=== PATIENT | male | born 1985 | race Caucasian/White ===

== ENCOUNTER 2018-12-18 17:18 | Emergency (ER) | payer BC ==
[2018-12-18] MEDS ORDERED: Sulfamethoxazole/Trimethoprim 800-160 MG Tab PO ONE ×2 (17:19→20:13)
[2018-12-18] MEDS ORDERED: Ondansetron 4 MG Tab.DIS PO ONE (17:19)
[2018-12-18] MEDS ORDERED: Ondansetron 4 MG/2 ML SDV IV ONE (18:05)
[2018-12-18] MEDS ORDERED: HYDROmorphone 1 MG/ML Syringe IVPUSH ONE ×2 (18:11→19:41)
[2018-12-18] MEDS ORDERED: Sodium Chloride 0.9% 1,000 ML IV ONE (18:12)
[2018-12-18] MEDS ORDERED: fentaNYL 100 MCG/2 ML SDV IVPUSH ONE (18:24)
--- NOTE | 2018-12-18 18:26 | EDM.PDOC ---
<Navya West - Last Filed: 12/18/18 19:00> ED HPI GENERAL MEDICAL PROBLEM - General Chief Complaint: Gastrointestinal Problem Stated Complaint: PAIN KIDNEY AREA Time Seen by Provider: 12/18/18 18:25 Source of Information: Reports: Patient, Family, RN, RN Notes Reviewed History Limitations: Reports: No Limitations - History of Present Illness INITIAL COMMENTS - FREE TEXT/NARRATIVE: Pt to ER with c/o left flank pain that radiates to the left groin and the left teste. States he has hx of kidney stones and had a stent placed on Tuesday. States today abruptly at 1600 began having severe pain, nausea and vomiting. Pt called [facility] and talked to Urology who told him to go to the ER to be evaluated. Patient denies fever. Admits to N/V. Rates pain 01/04. Onset: Today, Sudden - Related Data Allergies Allergy/AdvReac Type Severity Reaction Status Date / Time No Known Allergies Allergy Verified 12/18/18 17:45 Home Meds: Home Meds Hydrocodone/Acetaminophen [Hydrocodon-Acetaminophen 5-325] 1 tab PO Q6HR PRN [History] Past Medical History Other Genitourinary History: 12/15 surgery to remove kidney stone and place stent Oncologic (Cancer) History: Reports: None - Past Surgical History Male Surgical History: Reports: Kidney Stone Extraction Social & Family History - Family History Family Medical History: Noncontributory - Tobacco Use Smoking Status *Q: Current Every Day Smoker Years of Tobacco use: 15 Packs/Tins Daily: 0.5 Used Tobacco, but Quit: No Second Hand Smoke Exposure: Yes - Caffeine Use Caffeine Use: Reports: Soda - Recreational Drug Use Recreational Drug Use: No ED ROS GENERAL - Review of Systems Review Of Systems: ROS reveals no pertinent complaints other than HPI. ED EXAM, RENAL/ - Physical Exam Exam: See Below Exam Limited By: No Limitations General Appearance: Alert, WD/WN, Severe Distress Eye Exam: Bilateral Eye: Normal Inspection Ears: Normal External Exam, Hearing Grossly Normal Nose: Normal Inspection Throat/Mouth: Normal Inspection, Normal Voice, No Airway Compromise Head: Atraumatic, Normocephalic Neck: Normal Inspection Respiratory/Chest: No Respiratory Distress, Lungs Clear, Normal Breath Sounds, No Accessory Muscle Use, Chest Non-Tender Cardiovascular: Normal Peripheral Pulses, Regular Rate, Rhythm, No Edema, No Gallop, No JVD, No Murmur, No Rub GI/Abdominal: Normal Bowel Sounds, Soft, No Organomegaly, No Distention, No Abnormal Bruit, No Mass, Guarding, Tender (LLQ, left flank) (Male) Exam: Testicular Tenderness (L) Rectal (Males) Exam: Deferred Back Exam: Normal Inspection, CVA Tenderness (L) Extremities: Normal Inspection, Normal Range of Motion, Non-Tender, Normal Capillary Refill, No Pedal Edema Neurological: Alert Psychiatric: Normal Affect, Normal Mood, Anxious Skin Exam: Warm, Dry, Intact, Normal Color, No Rash Lymphatic: No Adenopathy Course - Vital Signs Last Recorded V/S: Last Vital Signs Temp 98.6 F 12/18/18 20:07 Pulse 69 12/18/18 20:07 Resp 18 12/18/18 20:07 BP 127/75 12/18/18 20:07 Pulse Ox 95 12/18/18 20:07 - Orders/Labs/Meds Orders: Active Orders 24 hr Category Date Time Status CULTURE URINE [RM] Stat Lab 12/18/18 19:42 Received Sulfamethoxazole/Trimethoprim [Septra DS] Med 12/18/18 20:13 Once 1 tab PO ONETIME ONE Medication Orders Trimethoprim/Sulfamethoxazole (Septra Ds) 1 tab PO ONETIME ONE Stop: 12/18/18 20:14 Labs: Laboratory Tests 12/18/18 12/18/18 12/18/18 Range/Units 18:39 18:39 19:42 WBC 14.3 H (5.0-10.0) 10^3/uL RBC 4.35 L (4.6-6.2) 10^6/uL Hgb 13.9 L (14.0-18.0) g/dL Hct 40.7 (40.0-54.0) % MCV 93.6 (80-100) fL MCH 32.0 (27.0-34.0) pg MCHC 34.2 (33.0-35.0) g/dL Plt Count 174 (150-450) 10^3/uL Neut % (Auto) 90.0 H (42.2-75.2) % Lymph % (Auto) 4.0 L (20.5-50.1) % Latimer % (Auto) 5.8 (2-8) % Eos % (Auto) 0.1 L (1.0-3.0) % Baso % (Auto) 0.1 (0.0-1.0) % Sodium 138 (135-145) mmol/L Potassium 3.4 L (3.6-5.0) mmol/L Chloride 102 (101-111) mmol/L Carbon Dioxide 26.0 (21.0-31.0) mmol/L Anion Gap 13.4 BUN 12 (7-18) mg/dL Creatinine 0.9 (0.6-1.3) mg/dL Est Cr Clr Drug Dosing 135.73 mL/min Estimated GFR (MDRD) > 60 BUN/Creatinine Ratio 13.33 Glucose 110 H (74-105) mg/dL Calcium 8.5 (8.4-10.2) mg/dl Total Bilirubin 1.0 (0.2-1.0) mg/dL AST 20 (10-42) IU/L ALT 16 (10-60) IU/L Alkaline Phosphatase 34 L (42-121) IU/L Total Protein 6.6 L (6.7-8.2) g/dl Albumin 3.9 (3.2-5.5) g/dl Globulin 2.7 Albumin/Globulin Ratio 1.44 Urine Color Renee (YELLOW) Urine Appearance Turbid (CLEAR) Urine pH 6.0 (5.0-9.0) Ur Specific [place]rop >= 1.030 (1.005-1.030) Urine Protein >=300 H (NEGATIVE) Urine Glucose (UA) Negative (NEGATIVE) Urine Ketones >=160 H (NEGATIVE) Urine Occult Blood Large H (NEGATIVE) Urine Nitrite Negative (NEGATIVE) Urine Bilirubin Small H (NEGATIVE) Urine Urobilinogen 1.0 (0.2-1.0) mg/dL Ur Leukocyte Esterase Small H (NEGATIVE) Urine RBC >100 H /HPF Urine WBC >100 H (0-5/HPF) /HPF Ur Epithelial Cells Few (NOT SEEN) /HPF Amorphous Sediment Few (NOT SEEN) /HPF Urine Bacteria Moderate H (0-FEW/HPF) /HPF Urine Mucus Moderate H (NOT SEEN) /LPF Meds: Medications Generic Name Dose Route Start Last Admin Trade Name Freq PRN Reason Stop Dose Admin Trimethoprim/Sulfamethoxazole 1 tab 12/18/18 20:13 Septra Ds PO 12/18/18 20:14 ONETIME ONE Discontinued Medications Generic Name Dose Route Start Last Admin Trade Name Talita PRN Reason Stop Dose Admin Fentanyl 50 mcg 12/18/18 18:24 12/18/18 18:28 Sublimaze IVPUSH 12/18/18 18:25 50 mcg ONETIME ONE Administration Hydromorphone HCl 1 mg 12/18/18 18:11 12/18/18 18:17 Dilaudid IVPUSH 12/18/18 18:12 1 mg ONETIME ONE Administration Hydromorphone HCl 1 mg 12/18/18 19:41 12/18/18 19:52 Dilaudid IVPUSH 12/18/18 19:42 1 mg ONETIME ONE Administration Sodium Chloride 1,000 mls @ 999 mls/hr 12/18/18 18:12 12/18/18 18:16 Normal Saline IV 12/18/18 19:12 999 mls/hr .BOLUS ONE Administration Metoclopramide HCl 10 mg 12/18/18 19:40 12/18/18 19:47 Reglan IVPUSH 12/18/18 19:41 10 mg ONETIME ONE Administration Ondansetron HCl 4 mg 12/18/18 18:05 12/18/18 18:09 Zofran IV 12/18/18 18:06 4 mg ONETIME ONE Administration Departure - Departure Disposition: Home, Self-Care 01 Clinical Impression: UTI, Urinary tract infectious disease, Kidney stone, S/P ureteral stent placement - Discharge Information Instructions: Kidney Stones, [id number], Urinary Tract Infection, Adult Forms: ED Department Discharge Additional Instructions: Follow up with Urology tomorrow bactrim DS one twice daily for 10 days push fluids tylenol or pain medication as ordered by urology for discomfort zofran 4mg ODT every 6 hours as needed for nasues - My Orders Last 24 Hours: My Active Orders 12/18/18 20:13 Sulfamethoxazole/Trimethoprim [Septra DS] 1 tab PO ONETIME ONE - Assessment/Plan Last 24 Hours: My Active Orders 12/18/18 20:13 Sulfamethoxazole/Trimethoprim [Septra DS] 1 tab PO ONETIME ONE <Taty Mullins - Last Filed: 12/18/18 22:26> Course - Radiology Interpretation Free Text/Narrative:: CT abdomen pelvis, See report - Re-Assessments/Exams Free Text/Narrative Re-Assessment/Exam: 12/18/18 22:[address] [facility]. Recommend follow up with Dr Jefferson. Bactrim DS BID x 10 days. Departure - Departure Time of Disposition: 20:14 Condition: Good - Discharge Information *PRESCRIPTION DRUG MONITORING PROGRAM REVIEWED*: No *COPY OF PRESCRIPTION DRUG MONITORING REPORT IN PATIENT MARIAELENA: No
[2018-12-18 19:05] LABS: ANION GAP 13.4; CHLORIDE,CL 102 mmol/L (101-111); SODIUM,NA 138 mmol/L (135-145)
--- NOTE | 2018-12-18 19:14 | CT ---
EXAMINATION: Abdomen Pelvis wo Cont SEX: Male AGE: 33 years CLINICAL HISTORY: 33-year-old male smoker with history of left UPJ stone (13 December 2018), subsequent stent placement (Tuesday) and now, left flank pain that "wraps around to the groin". Previous CT exam 13 December 2018. Scan technique: Volume acquisition of data emergency unenhanced CT scan of the abdomen and pelvis (kidneys/ureters/bladder) obtained while the patient was lying supine on the Siemens multi slice scanner [place], [place]. All data archived in the PACS system for storage, reformatting axial/sagittal/coronal planes and study. INTERPRETATION: 1. Asymmetric dense suprarenal calcification, right adrenal gland. 2. Left ureteral stent with the pigtail ends looped respectively in left renal pelvis and urinary bladder (persistent pyelocaliectasis). 3. Tiny punctate calcification lower pole calyx of the left kidney. Left kidney larger and edematous appearing with persistent mild PYELOCALIECTASIS on the left (despite ipsilateral stent). Phlebolith left pelvis lies outside the stent (ipsilateral distal left ureter). 4. Isolated small renal cortical cyst, posterior lateral midpole cortex, right kidney. 5. Normal size and configuration right kidney without sign of nephrolithiasis or obstructive uropathy on the right. 6. Gallbladder, unenhanced liver, stomach, spleen, pancreas and left adrenal gland unremarkable. 7. No pelvic or abdominal mass lesion, inflammatory "dirty" peritoneal fat, sign of mechanical bowel obstruction, ascites or free intraperitoneal air. Tiny punctate calcification mid prostate gland (urethra?). 8. Lung bases clear. Normal caliber abdominal aorta. Anterolisthesis L5 vertebral body with chronic severe L5-S1 disc disease. CONCLUSION: Abnormal. New left ureteral stent since 13 December 2018 exam but persistent enlargement and pyelocaliectasis, left kidney. (Tiny lower pole calyceal calcification left kidney)
[2018-12-18] MEDS ORDERED: Metoclopramide 10 MG/2 ML SDV IVPUSH ONE (19:40)
[2018-12-18] MEDS ORDERED: Ondansetron 4 MG Tab.DIS ONE (20:24)
[2018-12-18] MEDS ORDERED: Sulfamethoxazole/Trimethoprim 800-160 MG Tab ONE (20:24)
== END 2018-12-18 20:27 | disposition home or self-care (01) ==
LOC: DL.ED 17:18
DX: N39.0 Urinary tract infection, site not specified (principal); N20.0 Calculus of kidney; F17.210 Nicotine dependence, cigarettes, uncomplicated; Z46.6 Encounter for fitting and adjustment of urinary device; Z87.442 Personal history of urinary calculi
CPT/HCPCS: 36415; 74176; 80053; 81001; 85025; 87086; 96361; 96374; 96375; 96376; 99284; A9270; J1170; J2405; J2765; J3010; J7030